=== PATIENT | female | born 1960 ===

== ENCOUNTER 2017-04-20 22:01 | Observation (INO) | payer OTHER ==
[2017-04-20 22:11] VITALS: BP 137/50; PULSE 70; RESP 18; TEMP 96; O2SAT 99
[2017-04-20] MEDS ORDERED: Sodium Chloride 0.9% 1,000 ML IV STA (23:11)
[2017-04-21 00:09] LABS: BASO # 0.1 K/uL (0.0-0.2); BASO % 0.8 % (0.0-2.0); EOS # 0.1 K/uL (0.0-0.7); EOS % 0.8 % (0.0-4.0); HEMOGLOBIN 12.5 g/dL (12.0-16.0); LYMPH # 2.4 K/uL (1.0-4.3); LYMPH % 23.5 % (20.0-40.0); MEAN CELL VOLUME 91.7 fl (81.0-99.0); MEAN CORPUSCULAR HEMOGLOBIN 29.8 pg (27.0-31.0); MEAN CORPUSCULAR HGB CONC 32.5 g/dL (33.0-37.0); MEAN PLATELET VOLUME 7.9 fl (7.2-11.7); MONO # 0.3 K/uL (0.0-0.8); MONO % 2.7 % (0.0-10.0); NEUT # 7.4 K/uL (1.8-7.0); NEUT % 72.2 % (50.0-75.0); RBC 4.19 Mil/uL (3.80-5.20); RED CELL DISTRIBUTION WIDTH 13.2 % (11.5-14.5); WHITE BLOOD COUNT 10.2 K/uL (4.8-10.8)
[2017-04-21 00:22] LABS: ALB/GLOB RATIO 1.2 (1.0-2.1); ALBUMIN 4.3 g/dL (3.5-5.0); CALCIUM 9.4 mg/dL (8.4-10.2)
--- NOTE | 2017-04-21 00:55 | ED PDOC ---
HPI: Psych/Substance Abuse Time Seen by Provider: 04/20/17 22:47 Chief Complaint (Nursing): Alcohol Ingestion History Per: Patient Additional Complaint(s): Pt. brought in by EMS for public ETOH. Pt. does admit to drinking 2 martinis. She reports she's had 2 episodes of non-bloody vomiting. Denies diarrhea. Past Medical History Vital Signs: Last Vital Signs Temp 96 F L 04/20/17 22:06 Pulse 70 04/20/17 22:06 Resp 18 04/20/17 22:06 BP 137/50 L 04/20/17 22:06 Pulse Ox 99 04/20/17 22:06 - Medical History PMH: Bronchitis, Gall Bladder Disease (CHOLECYSTECTOMY) Denies: Chronic Kidney Disease - Surgical History Surgical History: Cholecystectomy, Tonsillectomy - Family History Family History: States: No Known Family Hx - Home Medications Home Medications: Ambulatory Orders Medication Instructions Recorded Cyclobenzaprine HCl [Flexeril] 10 mg PO HS #10 tab 09/14/15 Glimepiride [Amaryl] 4 mg PO BID #60 tab 09/14/15 Metformin HCl [Metformin] 850 mg PO BID #60 tab 09/14/15 Naproxen [Anaprox DS] 550 mg PO BID #30 tab 09/14/15 Sitagliptin Phosphate [Januvia] 100 mg PO DAILY #30 tab 09/14/15 - Allergies Allergies/Adverse Reactions: Allergies Allergy/AdvReac Type Severity Reaction Status Date / Time codeine Allergy tachycardia Verified 04/20/17 22:05 - Laboratory Results Result Diagrams: 04/20/17 23:49 04/20/17 23:49 - ECG O2 Sat by Pulse Oximetry: 99 ED OBSERVATION Date of observation admission: 04/20/17 Time of observation admission: 23:10 - Observation admission statement Patient is being placed in observation because:: ETOH - Progress Note Progress Note: 04/21/17 23:10 Labs ordered. Zofran 4mg IV, IV NS bolus given. 04/21/17 01:39 Pt. AAOx3. Reports feeling much better. No slurred speech. Gait steady unassisted. Pt. is clinically sober. Disposition - Clinical Impression Clinical Impression: Alcohol intoxication - Patient ED Disposition Is Patient to be Admitted: No - Disposition Disposition: Routine/Home Disposition Time: 01:39 Condition: IMPROVED
== END 2017-04-21 01:45 | disposition home or self-care (01) ==
LOC: H.ER 22:01 → H.EROBSV 23:24
PROVIDERS: ADMIT Emergency Medicine; ATTEND Emergency Medicine
DX: F10.129 Alcohol abuse with intoxication, unspecified (principal); Y90.6 Blood alcohol level of 120-199 mg/100 ml